=== PATIENT | female | born 1945 | race Caucasian/White ===

== ENCOUNTER → 2019-06-25 08:23 | Outpatient (CLI) | payer OTHER, SELFPAY ==
--- NOTE | ~2019-06-25 | XR_ITS ---
EXAMINATION: XR lumbar spine 2-3V DATE: 06/25/2019 08:44 INDICATION: Low back pain status post lumbar surgery TECHNIQUE: Anteroposterior and lateral views of the lumbar spine, and cone-down lateral view of the l umbosacral junction were obtained. COMPARISON: 04/15/2019 FINDINGS: There are changes of interval posterior fusion from L4 through S1. There are 3 mm of unchan ged anterolisthesis of L4 on L5 and L5 on S1. There is unchanged moderate loss of intervertebral disc space height at L2-3 and L5-S1 mild loss of intervertebral disc space height at L4-5.The vertebral b mercy heights are normal. There is no fracture. Calcified atherosclerosis is noted. IMPRESSION: 1. Moderate lumbar spondylosis with interval posterior fusion from L4 through S1. No acute findings. Reviewed, dictated and finalized at location A. OL SERGEANT IMPRESSION: 1. Moderate lumbar spondylosis with interval posterior fusion from L4 through S 1. No acute findings.
== END ==
PROVIDERS: PCP Family Medicine Adolescent Medicine; Visit Provider Neurological Surgery
DX: Z98.890 Other specified postprocedural states (principal); M47.896 Other spondylosis, lumbar region; Z98.1 Arthrodesis status
CPT/HCPCS: 72100

== ENCOUNTER 2019-07-23 10:01 | Outpatient (CLI) | payer OTHER, SELFPAY ==
--- NOTE | ~2019-07-23 | XR_ITS ---
EXAMINATION: XR lumbar spine 2-3V DATE: 07/23/2019 10:15 INDICATION: Lumbar spine surgery TECHNIQUE: Anteroposterior and lateral views of the lumbar spine, and cone-down lateral view of the l umbosacral junction were obtained. COMPARISON: 06/25/2019 FINDINGS: Again seen are changes of posterior fusion and laminectomy from L4 through S1. There are 3 mm of anterolisthesis of L4 on L5 and L5 on S1. There is mild loss of intervertebral disc space heigh t at L4-5 and moderate loss of intervertebral disc space height at L2-3 and L5-S1. The vertebral body heights are normal. There is no fracture. IMPRESSION: 1. Moderate lumbar spondylosis with posterior fusion and laminectomy from L5 through S1 without acute findings. Reviewed, dictated and finalized at location A. GER HOME IMPRESSION: 1. Moderate lumbar spondylosis with posterior fusion and laminectomy from L5 th rough S1 without acute findings.
== END 2019-07-23 10:02 | disposition home or self-care (01) ==
LOC: ANHIMG 10:06
PROVIDERS: PCP Family Medicine Adolescent Medicine; Visit Provider Neurological Surgery
DX: Z09 Encounter for follow-up examination after completed treatment for conditions other than malignant neoplasm (principal); M47.896 Other spondylosis, lumbar region
CPT/HCPCS: 72100

== ENCOUNTER 2020-05-24 17:23 | Emergency (ER) | payer OTHER, SELFPAY ==
[2020-05-24 17:36] VITALS: BP 127/60; PULSE 85; RESP 16; TEMP 36.8; O2SAT 100
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
== END 2020-05-24 18:02 | disposition home or self-care (01) ==
PROVIDERS: Emergency Provider Nurse Practitioner; PCP Family Medicine Adolescent Medicine
DX: S20.212A Contusion of left front wall of thorax, initial encounter (principal); V49.40XA Driver injured in collision with unspecified motor vehicles in traffic accident, initial encounter
CPT/HCPCS: 99212; G0463

== ENCOUNTER 2020-06-04 06:54 | Outpatient (NON) | payer OTHER, SELFPAY ==
[2020-06-04 19:24] LABS: SARS-CoV-2 RNA PCR Positive
== END 2020-06-04 06:55 ==
LOC: ANHCOVIDDT 07:15
PROVIDERS: PCP Family Medicine Adolescent Medicine; Visit Provider Family Medicine Adolescent Medicine
DX: U07.1 COVID-19 (principal)
CPT/HCPCS: C9803; U0003

== ENCOUNTER → 2020-10-22 12:31 | Outpatient (CLI) | payer OTHER, SELFPAY ==
--- NOTE | ~2020-10-22 | MM_ITS ---
EXAMINATION: MM screening kasandra BI w fito HISTORY: Screening mammogram TECHNIQUE: Craniocaudal and mediolateral oblique 3-D tomosynthesis images were obtained and synthetic 2-D images were generated. CAD analysis was submitted and interpreted. COMPARISON: No prior mammogram is available for comparison at this institution. BREAST PARENCHYMAL COMPOSITION: The breasts are almost entirely fatty. FINDINGS: There is no evidence of suspicious mass, calcification, or architectural distortion to sugg est malignancy in either breast. There has been no suspicious interval change. IMPRESSION: 1. No mammographic evidence of malignancy. 2. Recommend routine screening mammography in one year. BI-RADS Category 1: Negative Reviewed, dictated and finalized at location A.
== END ==
PROVIDERS: PCP Family Medicine Adolescent Medicine; Visit Provider Family Medicine Adolescent Medicine
DX: Z12.31 Encounter for screening mammogram for malignant neoplasm of breast (principal)
CPT/HCPCS: 77063; 77067

== ENCOUNTER → 2022-08-08 08:06 | Outpatient (CLI) | payer OTHER, SELFPAY ==
--- NOTE | ~2022-08-08 | MR_ITS ---
EXAMINATION: MR lumbar spine wo/w con DATE: 08/08/2022 08:55 INDICATION: Lumbar spondylosis without myelopathy or radiculopathy TECHNIQUE: Magnetic resonance imaging (MRI) of the lumbar spine was performed without and with 15 mL Multihance intravenous contrast. Sequences included sagittal T2-weighted FSE, sagittal T2-weighted FS FSE, and sagittal and axial T1-weighted FSE. Postcontrast sequences included axial T2-weighted FSE, sagittal T1-weighted FSE, and axial and sagittal T1-weighted FS FSE. COMPARISON: Lumbar spine radiographs dated 07/23/2019 and MRI dated 12/13/2018 FINDINGS: 1-2 mm retrolisthesis L1 on L2, 3 mm retrolisthesis L2 on L3, 4 mm retrolisthesis L3 on L4, 3 mm ante rolisthesis L4 on L5 and 5 mm anterolisthesis L5 on S1. Interval L4 and L5 laminectomies with L4-S1 p osterior spinal fusion with bilateral vertical jessica and pedicle screw fixation. Stable appearance of c hronic anterior wedging, mild at T11, minimal at T11 and L1. Schmorl's nodes at multiple levels. Mode rate disc height loss at T11-T12, L2-L3 and L4-L5, severe disc height loss at T10-T11 and L5-S1. Mild disc height loss at T12-L1, L1-L2 and L3-L4. Bone marrow signal is normal. The conus medullaris term inates at L2. There is normal signal in the caudal spinal cord. Paravertebral soft tissues are unrema rkable. No abnormally enhancing lesions identified. The following disc levels are specifically discus sed: T12-L1: Minimal central disc protrusion. There is mild bilateral facet joint osteoarthritis. There is no neural foraminal stenosis. There is no central canal stenosis. L1-L2: Disc is mildly bulging. There is mild left and moderate right facet joint osteoarthritis. Ther e is no neural foraminal stenosis. There is no central canal stenosis. L2-L3: Disc is bulging with annular fissure. There is moderate bilateral facet joint osteoarthritis. There is moderate bilateral neural foraminal stenosis. There is mild central canal stenosis. L3-L4: Evaluation somewhat limited by metallic magnetic field artifact from the posterior spinal fusi on instrumentation at L4. There is a new annular fissure and left paracentral disc extrusion with dis c material extending up to 12 mm caudal to the level of the superior endplate of L4. There is hypertr ophy of the ligamentum flavum. There is moderate to severe bilateral facet joint osteoarthritis. Ther e is moderate bilateral neural foraminal stenosis. There is severe central canal stenosis. L4-L5: The previously bulging and extruded disc material is no longer visualized and was likely resec edith the time of the posterior spinal fusion. There is mild to moderate bilateral neural foraminal jeremias nosis. L4 and L5 laminectomies and posterior decompression with no central canal stenosis. L5-S1: Disc is bulging with annular fissure. Instrumented posterior spinal fusion. There is mild left and mild to moderate right neural foraminal stenosis. L5 laminectomy with posterior decompression an d no central canal stenosis. IMPRESSION: 1. Severe lumbar spondylosis with interval L4 and L5 laminectomies, likely resection of the L4-L5 dis c extrusion and instrumented L4-S1 posterior spinal fusion. 2. New 4 mm retrolisthesis L3-L4 with corresponding new mild disc height loss and annular fissure wit h disc extrusion contributing to severe central canal stenosis at this level. Reviewed, dictated and finalized at location B. IMPRESSION: 1. Severe lumbar spondylosis with interval L4 and L5 laminectomies, likely rese ction of the L4-L5 disc extrusion and instrumented L4-S1 posterior spinal fusio n. 2. New 4 mm retrolisthesis L3-L4 with corresponding new mild disc height loss a nd annular fissure with disc extrusion contributing to severe central canal jeremias nosis at this level.
== END ==
PROVIDERS: PCP Family Medicine Adolescent Medicine; Visit Provider Nurse Practitioner Adult Health
DX: M47.816 Spondylosis without myelopathy or radiculopathy, lumbar region (principal)
CPT/HCPCS: 72158; A9577

== ENCOUNTER 2022-09-15 08:59 | Outpatient (CLI) | payer OTHER, SELFPAY ==
--- NOTE | ~2022-09-15 | XR_ITS ---
Lumbosacral Spine: AP and lateral views, with neutral, flexion, and extension positioning. Clinical History: Spondylosis COMPARISON: 07/23/2019 Findings: Posterior fusion from L4 through S1 is again present. Orthopedic hardware is unchanged. Sta ble grade 1 anterolisthesis of L4 over L5, and of L5 over S1. There is advanced degenerative disc lyric rowing at L2-L3. There is new grade 1 retrolisthesis of L2 over L3. No definite instability seen on f lexion or extension. The sacroiliac joints are normally outlined. Impression: Posterior fusion from L4 through S1 appears unchanged. Stable grade 1 anterolisthesis of L4-L5, and of L5 over S1. Grade 1 retrolisthesis of L2 over L3, which appears new/slightly more pronounced as compared to prior exam. Reviewed, dictated and finalized at location . Impression: Posterior fusion from L4 through S1 appears unchanged. Stable grade 1 anterolisthesis of L4-L5, and of L5 over S1. Grade 1 retrolisthesis of L2 over L3, which appears new/slightly more pronounce d as compared to prior exam.
== END 2022-09-15 09:00 | disposition home or self-care (01) ==
PROVIDERS: PCP Family Medicine Adolescent Medicine; Visit Provider Nurse Practitioner Adult Health
DX: M47.816 Spondylosis without myelopathy or radiculopathy, lumbar region (principal); Z98.1 Arthrodesis status
CPT/HCPCS: 72110

== ENCOUNTER → 2022-10-20 09:20 | Outpatient (CLI) | payer OTHER, SELFPAY ==
--- NOTE | ~2022-10-20 | CT_ITS ---
EXAMINATION: CT lumbar spine wo con DATE: 10/20/2022 09:37 INDICATION: Back pain. Spinal stenosis. TECHNIQUE: Computed tomography (CT) of the lumbar spine was performed without intravenous contrast. A utomated exposure control and iterative reconstruction technique were employed. The dose-length produ ct was 824.11 mGy-cm. COMPARISON: Lumbar spine MRI 08/08/2022 FINDINGS: There are calcified fibroids in the uterus. There is 8 degrees levocurvature of lumbar spin e. There is 3 mm retrolisthesis of L2 on L3 and 3 mm anterolisthesis of L4 on L5 and L5 on S1. There is mild chronic anterior wedging of T12 and L1 vertebral bodies. There are changes of posterior fusio n procedure from L4 to S1 with pedicle screws. There is severely decreased disc height at L2-L3, mild ly decreased disc height at L3-L4, moderately decreased disc height at L4-L5, and severely decreased disc height at L5-S1. The following disc levels are specifically discussed: L1-L2: The disc is bulging. There is mild bilateral facet joint osteoarthritis. There is no neural fo raminal stenosis. There is mild central canal stenosis. L2-L3: The disc is bulging. There is moderate bilateral facet joint osteoarthritis. There is moderate bilateral neural foraminal stenosis. There is mild central canal stenosis. L3-L4: The disc is bulging. There is severe bilateral facet joint osteoarthritis. There is hypertroph y of the ligamentum flavum. There is moderate bilateral neural foraminal stenosis. There is severe ce ntral canal stenosis. L4-L5: The disc does not extend beyond the endplate margin. There is mild bilateral facet joint hyper trophy. There is mild bilateral neural foraminal stenosis. There is no central canal stenosis. There is posterior decompression. L5-S1: The disc is bulging. There is moderate bilateral facet joint hypertrophy. There is mild bilate ral neural foraminal stenosis. There is mild central canal stenosis. IMPRESSION: 1. Severe lumbar spondylosis, stable from 08/08/2022. Reviewed, dictated and finalized at location E.
== END ==
PROVIDERS: PCP Family Medicine Adolescent Medicine; Visit Provider Neurological Surgery
DX: M47.816 Spondylosis without myelopathy or radiculopathy, lumbar region (principal); Z98.1 Arthrodesis status
CPT/HCPCS: 72131

== ENCOUNTER 2024-12-09 09:09 | Emergency (ER) | payer OTHER, SELFPAY ==
[2024-12-09 09:22] VITALS: BP 120/76; PULSE 66; RESP 18; TEMP 36.8; O2SAT 98
--- NOTE | 2024-12-09 09:24 | ED.LOWEXIN ---
HPI - Extremity Injury (Lower) General Stated Complaint: Right Knee Pain Time Seen by Provider: 12/09/24 09:25 Source: patient Mode of arrival: ambulatory Limitations: no limitations History of Present Illness HPI Narrative: 79-year-old female presented for complaint of right knee pain and lower leg swelling. Onset 3 days. Pt also reports leg cramping but says this is not new. Denies injury. States pain started while walking during work. Patient denies changes in temp or color to the leg, denies chest pain, palpitations, dizziness, nausea, vomiting or lethargy. Rates pain 7/10 when walking, but says pain improves in the knee after she is up walking for a while. Related Data Home Medications ?Medication ?Instructions ?Recorded ?Confirmed ?Last Taken ?Type multivitamin 1 tablet PO DAILY 01/20/22 11/23/23 Unknown History turmeric 400 mg capsule mg PO 12/08/22 11/23/23 Unknown History vitamin B12 0.5 mg-folic acid 1 mg 1 tablet PO DAILY 12/08/22 11/23/23 Unknown History tablet Allergies Allergy/AdvReac Type Severity Reaction Status Date / Time No Known Allergies Allergy Verified 12/09/24 09:36 Review of Systems Review of Systems: CONSTITUTIONAL: Denies body aches, fever, chills EYES: Denies visual changes ENT: Denies rhinorrhea, congestion CARDIOVASCULAR: Denies chest pain, palpitations, or edema. RESPIRATORY: Denies cough or dyspnea. SKIN: Denies rash, itching, or wounds. MUSCULOSKELETAL: reports RLE swelling and knee pain NEUROLOGIC: Denies numbness, tingling, or weakness. All systems reviewed & are unremarkable except as noted in HPI and below PMFSH Past Medical History Medical History History of meniscal tear (~12/2017) Lumbar spondylosis Surgical History Surgical History History of lumbar surgery (05/2019) fusion History of vein stripping (1997) Right leg Hx of left knee surgery (2017) Torn meniscus Family History Family History Mother Diabetes mellitus Father COPD (chronic obstructive pulmonary disease) Other Family history of arthritis Social History Social History Smoking status: Former smoker Tobacco type: cigarettes Second hand tobacco smoke exposure: No Smoking end date: 09/27/72 Alcohol intake: current Alcohol use details: occasionally Substance use: never Substance use type: does not use Living arrangements: with family Occupation/Education: occupation Gender identity (if verbalized by the patient): Female Spiritual care concerns: No Agree to blood products: Yes Comments At time of signature, I have reviewed and agree with nursing past medical, surgical, social and family history unless otherwise noted. Please see nursing chart for further information. There is no relevant family history pertinent to the presenting complaint Exam Narrative: GENERAL: Well-appearing, and in no acute distress. CHEST: Speaks in full sentences. No respiratory distress. HEART: Regular rate and rhythm. Normal and equal peripheral pulses. EXTREMITIES: Right calf swelling 3cm greater than left calf. Swelling extends to ankle/foot 2+ pitting. No erythema, no tenderness to the calf with palpation. Positive florencia's; endorses 'tightness' to calf. No erythema to the calf or LE. Varicose veins noted. Pt reports tenderness with palpation to the lower anterior/medial aspect of the right knee. No bruising, erythema or warmth. Patient is able to tolerate full flexion, extension, internal and external rotation. No tenderness to palpation of the patella, no effusion or ballottement. No tenderness over the infrapatellar tendon, proximal fibular head, or quadriceps tenderness. Distal motor and neurovascular status intact. Capillary refill less than 3 seconds. Walking with cane. SKIN: Warm, dry, no rash. NEURO: Alert and oriented x3. PSYCH: Normal mood and affect Course Course Emergency Course: Patient is aware of diagnosis, understands and agrees to treatment plan. Anticipatory guidance given. Patient agrees to follow-up as directed and is aware of reasons to seek care at the emergency department. Portions of this record may have been created with voice recognition software Level of Care: Express Care Visit Vital Signs Vital signs: Vital Signs Temperature 98.3 F 12/09/24 09:22 Pulse Rate 66 12/09/24 09:22 Respiratory Rate 18 12/09/24 09:22 Blood Pressure 120/76 12/09/24 09:22 Pulse Oximetry 98 07/14/25 09:22 Oxygen Delivery Room Air 12/09/24 09:22 Temperature 98.3 F 12/09/24 09:22 Pulse Rate 66 12/09/24 09:22 Respiratory Rate 18 12/09/24 09:22 Blood Pressure 120/76 12/09/24 09:22 Pulse Oximetry 98 12/09/24 09:22 Oxygen Delivery Room Air 12/09/24 09:22 Reviewed Transfer Transfered to: [facility] Transportation: Other ( Private vehicle) Transfer rationale: Pt is agreeable to transfer. Requests transfer to [facility] via private vehicle. Risks of transportation reviewed with pt including injury, worsening of condition and . v/u. Report called to hospital, spoke with Dr Cardoza, accepting physician. Pt is in stable condition at time of transfer. Advised to remain NPO and go directly to the hospital. MDM - Extremity Injury (Lower) MDM Narrative Medical decision making narrative: Pt presented with right knee pain and right lower extremity swelling x3 days. Well's criteria, pt is risk for DVT. Recommend ER transfer. Pt understands they may also evaluate the knee pain seperately. We discussed possible etiologies including DVT and pt is agreeable for evaluation to rule out. Differential Diagnosis Differential diagnosis: Likely other (DVT, CHF, PVD, venous insufficiency, medication related, renal failure, gravitational edema, cellulitis, osteoarthritis, patella dislocation, patellar tendonitis, tendon rupture, gout, bakers cyst, septic bursitis, tibial plateau fracture) Discharge Plan Discharge Clinical Impression: Right leg swelling Patient Disposition: Acute Care Hospital Condition: Stable Patient Language: Georgian Prescriptions: No Action risedronate 150 mg tablet 150 mg PO MONTHLY Rx Instructions: administer at least 30 minutes before the first food or drink of the day other than water. multivitamin Tablet 1 tablet PO DAILY turmeric 400 mg capsule PO vitamin U23-beccj acid 0.5-1 mg tablet 1 tablet PO DAILY naproxen 500 mg tablet 500 mg PO BID Qty: 60 5RF cholecalciferol (vitamin D3) 50 mcg (2,000 unit) capsule 50 mcg PO DAILY Qty: 90 3RF atorvastatin 10 mg tablet 10 mg PO DAILY Qty: 90 2RF doxycycline hyclate 100 mg capsule 100 mg PO BID Qty: 20 0RF benzonatate 200 mg capsule 200 mg PO TID PRN (Reason: cough) Qty: 20 1RF Follow-up/Referrals: Arthur Andino MD [Primary Care Provider] - Time of Disposition: 09:43
== END 2024-12-09 09:45 | disposition short-term general hospital (02) ==
PROVIDERS: Emergency Provider Nurse Practitioner Family; PCP Family Medicine Adolescent Medicine
DX: R22.41 Localized swelling, mass and lump, right lower limb (principal); Z87.891 Personal history of nicotine dependence
CPT/HCPCS: 99212; G0463

== ENCOUNTER 2024-12-09 10:05 | Emergency (ER) | payer OTHER, SELFPAY ==
--- NOTE | ~2024-12-09 | US_ITS ---
RIGHT LOWER EXTREMITY VENOUS ULTRASOUND Ordering provider: Nkechi Tomlinson MD History: . R/O DVT . Comparison: None. FINDINGS: --COMMON FEMORAL: Patent and free of thrombus. Normal compressibility, phasic flow and augmentation. --PROXIMAL SUPERFICIAL FEMORAL: Patent and free of thrombus. Normal compressibility, phasic flow and augmentation. --DISTAL SUPERFICIAL FEMORAL: Patent and free of thrombus. Normal compressibility, phasic flow and au gmentation. --POPLITEAL: Patent and free of thrombus. Normal compressibility, phasic flow and augmentation. --POSTERIOR TIBIAL: Patent and free of thrombus. Normal compressibility, phasic flow and augmentation . Thrombosis in the lesser saphenous vein. Complex hypoechoic area which measures 4.9 x 1.8 x 3.4 cm is seen in the knee area suggestive of Bake r's cyst. Follow-up advised. IMPRESSION: Thrombosis in the lesser saphenous vein. No deep vein thrombosis. 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 Follow-up advised. Reviewed, dictated and finalized at location A. IMPRESSION: Thrombosis in the lesser saphenous vein. No deep vein thrombosis. 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 Foll ow-up advised.
--- NOTE | ~2024-12-09 | XR_ITS ---
XR knee RT 3V Ordering provider: Nkechi Tomlinson MD History: . R knee pain/swelling; atraumatic, x2d . Comparison: None. FINDINGS: BONES: No acute fracture or dislocation. JOINT SPACES: Normal. SOFT TISSUES: Normal. IMPRESSION: No acute osseous abnormality right knee. Reviewed, dictated and finalized at location A.
--- OUTSIDE RECORDS SUMMARY | 2024-12-09 10:09 | XMS_ITS | Clinical Summary ---
Author Organization [facility] Address [address] [place] [address] Care Team Providers Care Pillow Agent Name Role Phone Unavailable Primary Care Provider Unavailabl e Social History Tobacco Use Types Packs/Day Years Used Date Smoking Tobacco: Never Assessed Comments Unknown Sex and Gender Information Value Date Recorded Sex Assigned at Not on file Legal Sex Female 7:16 PM CDT Gender Identity Not on file Sexual Orientation Not on file Plan of Treatment Health Maintenance Due Date Last Done Comments Hepatitis C 1963 DTaP, Tdap and Td Vaccines ( 1 - Tdap) 1965 Pneumococcal Vaccine: 50+ Ye ars (1 of 1 - PCV) 1996 Zoster Vaccines (1 of 2) 1996 Dexa Scan (General) 11/10/2011 RSV Immunization or 60+ Years (1 - 1-dose 75+ series) 2021 COVID-19 Vaccine (2023-2 5 season) 2024 Meningococcal B Vaccine Aged Out No l onger eligible based on patient's age to complete this topic Meningococcal Vaccine Aged Out No coleman addie eligible based on patient's age to complete this topic RSV Immunizations Under 20 Months Aged Out No longer eligible based on patient's age to complete this topic
--- OUTSIDE RECORDS SUMMARY | 2024-12-09 10:09 | XMS_ITS | Clinical Summary ---
Author Organization [employer] [address] [facility] Address [address] [place] [address] Care Team Providers Care Lottery Sales Clerk Name Role Phone Arthur Andino MD Primary Care Provider [phone]- [phone] Allergies No known active allergies Medications alendronate (FOSAMAX) 70 mg tablet Take 70 mg by mouth every 7 days Sundays. 3 9 Active acetaminophen (TYLENOL) 500 mg tablet Take 500 mg by mouth every 6 hours as needed. Active sennosides-docus ate sodium (SENNA-S) 8.6-50 mg tablet Take one tablet by mouth twice daily while on narcotic analgesia, then take one tablet twice daily as needed for constipation. 30 Tablet 1 06/16/2019 2:12 PM CLINICAL SALES CONSULTANT 0 Active cyclobenzaprine (FLEXERIL) 10 mg tablet Take 0.5-1 Tablets (5-10 mg) by mouth at bedtime as needed to prevent muscle spasm 15 Tablet 06/16/2019 2:12 PM CLINICAL SALES CONSULTANT 0 Active oxyCODONE (ROXICODONE) 5 mg tabletIndication s:Neurogenic claudication due to lumbar spinal stenosis Take 1 Tablet (5 mg) by mouth every 6 hours as needed (for breakthrough pain refractory to Tylenol.). Max Daily Amount: 20 mg 12 Tablet 06/16/2019 2:12 PM CLINICAL SALES CONSULTANT 0 Active gabapentin (Neurontin) 300 mg capsule Take 1 Capsule (300 mg) by mouth 3 times daily. 60 Capsule 02/25/202 0 Active Active Problems Problem Noted Date Diagnosed Date Acute blood loss anemia 06/14/2019 Spondylolisthesis at L4-L5 level 05/27/2019 Status post lumbar spine arabella shaun for decompression of spinal cord 05/27/2019 Postoperative follow-up 02/19/2019 Neurogenic claudication due to lumbar spinal jeremias nosis 01/07/2019 Neuritis or radiculitis due to rupture of lumbar intervertebral disc 01/07/2019 Family History Medical History Relation Name Comments No Known Problems Brother No Known Problems Father Dementia Mother No Known Problems Sister Relation Name Status Comments Brother Alive Father Mother Sister Alive Social History Tobacco Use Types Packs/Day Years Used Date Smoking Tobacco: Former Cigarettes 1 20 1 [id number] Smokeless Tobacco: Never Alcohol Use Standard Drinks/Week Comments Yes 0 (1 standard drink = 0.6 oz pur e alcohol) moderate Comments No Sex and Gender Information Value Date Recorded Sex Assigned at Not on file Legal Sex Female 9:42 AM CDT Gender Identity Not on file Sexual Orientation Not on file 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 Not on file Not on file Not on file Last Filed Vital Signs Vital Sign Reading Time Taken Comments Blood Pressure 133/61 06/16/2019 2:07 PM CLINICAL SALES CONSULTANT Pulse 97 06/16/2019 2:07 PM CLINICAL SALES CONSULTANT Temperature 36.8 C (98.2 F) 06/16/2019 2:07 PM CLINICAL SALES CONSULTANT Respiratory Rate 16 06/16/2019 2:07 PM CLINICAL SALES CONSULTANT Oxygen Saturation 99% 06/16/2019 2:07 PM CLINICAL SALES CONSULTANT Inhaled Oxygen Concentration - - Weight 79.4 kg (175 lb) 06/12/2019 10:40 AM CLINICAL SALES CONSULTANT Height 158.8 cm (5' 2.5) 06/12/2019 10:40 AM CS T Body Mass Index 31.5 06/12/2019 10:40 AM CLINICAL SALES CONSULTANT Plan of Treatment Health Maintenance Due Date Last Done Comments DTAP/TDAP/TD VACCINES (1 - Tdap) 1965 PNEUMOCOCCAL VACCINE 50+ YEARS (1 of 1 - PCV) 11/09/18 97 ZOSTER VACCINE (1 of 2) 1996 OSTEOPOROSIS SCREENING 11/10/2011 RSV VACCINE (60+ or ) (1 - 1-dose 75+ series) 2021 INFLUENZA VACCINE (#1) 2024 Medical Devices Implanted Type Area [employer] Chemistry Teacher Device Identifier Shelf Expiration Date Model / Serial / Lot Sealant Duraseal 5ml - [id number] Implanted:Qty: 1 on 06/12/2019 by Lamonte Canales MD at [facility] Biological N/A: Spine Lumbar [employer]RA LIFES[employer] LYN 03/28/2020 / / [id number] Hemostatic Surgiflo 8ml W/Thrombin 2994 - Sna Implanted:Qty: 1 on 06/12/2019 by Lamonte Canales MD at [facility] Hemostatic N/A: Spine Lumbar J[employer]J- [employer] 04/27/2020 2994 / NA / [id number] Reginaldo Solera Ccm Crv [id number] - [id number] Implanted:Qty: 2 on 06/12/2019 by Lamonte Canales MD at [facility] Reginaldo N/A: Spine Lumbar MED[employer]ON[employer]- SOFAMOR DANEK [id number] / / NA Description:load 200 87716 sterilization date [id number] REQ#[id number] Screw Solera Breakoff [id number] - [id number] Implanted:Qty: 6 on 06/12/2019 by Lamonte Canales MD at [facility] Screw N/A: Spine Lumbar [employer]- SOFAMOR DANEK [id number] / / NA Description:load 200 85988 sterilization date [id number] Screw Solera Ma 6.5x45mm [id number] - [id number] Implanted:Qty: 1 on 06/12/2019 by Lamonte Canales MD at [facility] Screw N/A: Spine Lumbar [employer]- SOFAMOR DANEK [id number] / / NA Description:load 200 33409 sterilization date [id number] Screw Solera Ma 6.5x40mm [id number] - [id number] Implanted:Qty: 1 on 06/12/2019 by Lamonte Canales MD at [facility] Screw N/A: Spine Lumbar [employer]- SOFAMOR DANEK [id number] / / NA Description:load 200 80056 sterilization date [id number] Screw Solera Ma 7.5x35mm [id number] - [id number] Implanted:Qty: 2 on 06/12/2019 by Lamonte Canales MD at [facility] Screw N/A: Spine Lumbar [employer]- SOFAMOR DANEK [id number] / / NA Description:load 200 11189 sterilization date [id number] Screw Solera Ma 7.5x40mm [id number] - [id number] Implanted:Qty: 1 on 06/12/2019 by Lamonte Canales MD at [facility] Screw N/A: Spine Lumbar [employer]- SOFAMOR DANEK [id number] / / NA Description:load 200 61517 sterilization date [id number] Screw Solera Ma 7.5x45mm [id number] - [id number] Implanted:Qty: 1 on 06/12/2019 by Lamonte Canales MD at [facility] Screw N/A: Spine Lumbar [employer]- SOFAMOR DANEK [id number] / / NA Description:load 200 23952 [id number] sterilization Infuse Protein Kit [id number] - [id number] Implanted:Qty: 1 on 06/12/2019 by Lamonte Canales MD at [facility] Tissue N/A: Spine Lumbar MED[employer]- SOFAMOR DANEK 06/28/2021 [id number] / [id number] / [id number] Allograft Magnifuse Sc [id number] - [id number] Implanted:Qty: 1 on 06/12/2019 by Lamonte Canales MD at [facility] Tissue N/A: Spine Lumbar [employer] 02/26/2021 [id number] / [id number] / Description:CHECKED BOX RN [id number] REQ [id number] Explanted Type Area [employer] Chemistry Teacher Device Identifier Shelf Expiration Date Model / Serial / Lot Hemostatic Surgiflo 8ml W/Thrombin 2994 - Sna Explanted:Qty: 1 on 01/24/2019 by Lamonte Canales MD at [facility] Hemostatic N/A: Spine Lumbar J[employer]J- [employer] 01/27/2020 2994 / NA / [id number] Insurance Member Subscriber Plan / Payer (Ef fective 2015-Present) Name:Suzie Trujillo Relation to Subscriber:Self Name:Suzie Trujillo Payer ID:Not on file Group ID:[id number] Type:RX Medicare Part D Address: [address] [place] [id number] Advance Directives For more information, please contact: [phone] * Full Code (Latest Code Status on File) Date Activated Date Inactivated Comments 06/12/2019 10:43 PM 06/16/2019 4:56 PM * Full Code Date Activated Date Inactivated Comments 06/12/2019 12:05 PM 06/12/2019 10:43 PM * Full Code Date Activated Date Inactivated Comments 01/24/2019 4:17 PM 01/24/2019 8:05 PM Care Teams Lottery Sales Clerk Relationship Specialty Start Date End Date Arthur Andino MD PCP - General Family Practice 12/20/18
[2024-12-09 10:12] VITALS: BP 144/62; PULSE 69; RESP 17; TEMP 36.4; O2SAT 100
--- NOTE | 2024-12-09 10:13 | ED_ITS ---
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 Related Data Home Medications ?Medication ?Instructions ?Recorded ?Confirmed ?Last Taken ?Type multivitamin 1 tablet PO DAILY 01/20/22 11/23/23 Unknown History turmeric 400 mg capsule mg PO 12/08/22 11/23/23 Unknown History vitamin B12 0.5 mg-folic acid 1 mg 1 tablet PO DAILY 12/08/22 11/23/23 Unknown History tablet Allergies Allergy/AdvReac Type Severity Reaction Status Date / Time No Known Allergies Allergy Verified 12/09/24 10:11 Review of Systems Review of Systems: All systems reviewed & are unremarkable except as noted in HPI and below PMFSH Past Medical History Medical History History of meniscal tear (~12/2017) Lumbar spondylosis Surgical History Surgical History History of lumbar surgery (05/2019) fusion History of vein stripping (1997) Right leg Hx of left knee surgery (2017) Torn meniscus Family History Family History Mother Diabetes mellitus Father COPD (chronic obstructive pulmonary disease) Other Family history of arthritis Social History Social History Smoking status: Former smoker Tobacco type: cigarettes Second hand tobacco smoke exposure: No Smoking end date: 09/27/72 Alcohol intake: current Alcohol use details: occasionally Substance use: never Substance use type: does not use Living arrangements: with family Occupation/Education: occupation Gender identity (if verbalized by the patient): Female Spiritual care concerns: No Agree to blood products: Yes Exam Narrative: EXAMINATION OF ORGAN SYSTEMS/BODY AREAS: Constitutional: Vital signs per nursing GENERAL:[No acute distress, non-toxic appearing.] HEAD: Normal with no signs of head trauma. EYES: EOMI, conjunctiva normal ENT: Hearing grossly intact LUNGS: Nonlabored breathing. HEART: [Regular rate and rhythm] ABD: [Soft], [nontender to palpation] EXT: Normal range of motion; swelling right lower leg compared to left SKIN: [No rashes or lesions.] NEURO: [Alert and oriented x 3. No gross focal sensory or strength deficits.] Able to ambulate. PSYCH: Normal affect Course Vital Signs Vital signs: Vital Signs Temperature 97.5 F L 12/09/24 10:12 Pulse Rate 69 12/09/24 10:12 Respiratory Rate 17 12/09/24 10:12 Blood Pressure 144/62 H 12/09/24 10:12 Pulse Oximetry 100 12/09/24 10:12 Oxygen Delivery Room Air 12/09/24 10:12 Temperature 97.5 F L 12/09/24 10:12 Pulse Rate 65 12/09/24 12:04 Respiratory Rate 18 12/09/24 12:04 Blood Pressure 143/57 H 12/09/24 12:04 Pulse Oximetry 100 12/09/24 12:04 Oxygen Delivery Room Air 12/09/24 10:12 MDM - Extremity (Nontraumatic) MDM Narrative Medical decision making narrative: Patient presents here with atraumatic right knee/leg pain and swelling, on exam she is quite well-appearing, she has no prior history of blood clots, she is able to ambulate and has normal range of motion, no obvious skin findings, I have low concern for infectious cause given her painless range of motion, will rule out DVT here as well as obtain knee x-ray. Knee x-ray unremarkable. DVT ultrasound shows no DVT, there is thrombosis in the small saphenous pain however I did call radiologist, unable to asked certain how extensive the thrombosis is, in shared decision making with the patient, given the extent of her symptoms and risk factors, will opt to start her on prophylactic anticoagulation at this time with xarelto, coupon given, with strict return precautions and follow-up instructions to her primary care doctor, she will likely require repeat ultrasound to ensure no propagation of clot, and she knows to return if she has any chest pain or shortness of breath or signs of PE. Advised to avoid NSAIDs and that she needs to return if she falls and hits her head. Symptomatic management including elevation, compression, compresses, counseled. Discharge Plan Discharge Clinical Impression: Thrombophlebitis Patient Disposition: Home Condition: Stable Instructions: Superficial Thrombophlebitis (ED) Additional Instructions: Please start the blood thinners as prescribed; keep your leg elevated, try compression stockings, you can try warm or cold compresses. Please call your doctor as soon as possible for close followup; you will likely need a repeat ultrasound to see if you need to continue the blood thinners. If you start having any new new or worsening pain or swelling or anything else concerning especially chest pain or shortness of breath, please come back to the hospital. Patient Language: Croatian Prescriptions: New rivaroxaban 10 mg tablet 10 mg PO DAILY Qty: 45 0RF No Action multivitamin Tablet 1 tablet PO DAILY turmeric 400 mg capsule PO vitamin U26-ccwtr acid 0.5-1 mg tablet 1 tablet PO DAILY cholecalciferol (vitamin D3) 50 mcg (2,000 unit) capsule 50 mcg PO DAILY Qty: 90 3RF atorvastatin 10 mg tablet 10 mg PO DAILY Qty: 90 2RF Follow-up/Referrals: Qamar Prescott MD [Physician] - 2 Days Arthur Andino MD [Primary Care Provider] - 2 Days
--- OUTSIDE RECORDS SUMMARY | 2024-12-09 10:31 | XMS_ITS | Clinical Summary ---
Author Organization [employer] [address] [facility] Address [address] [place] [address] Care Team Providers Care Licensed Occupational Therapy Assistant Name Role Phone Arthur Andino MD Primary Care Provider +1- [phone] Allergies No known active allergies Medications alendronate [...] constipation. 30 Tablet 1 06/16/2019 2:12 PM BUSINESS SERVICES ASSOCIATE 0 Active cyclobenzaprine (FLEXERIL) 10 mg tablet Take 0.5-1 Tablets (5-10 mg) by mouth at bedtime as needed to prevent muscle spasm 15 Tablet 06/16/2019 2:12 PM BUSINESS SERVICES ASSOCIATE 0 Active oxyCODONE (ROXICODONE) 5 mg tabletIndication s:Neurogenic claudication due to lumbar spinal stenosis Take 1 Tablet (5 mg) by mouth every 6 hours as needed (for breakthrough pain refractory to Tylenol.). Max Daily Amount: 20 mg 12 Tablet 06/16/2019 2:12 PM BUSINESS SERVICES ASSOCIATE 0 Active gabapentin (Neurontin) 300 mg capsule [...] Comments Blood Pressure 133/61 06/16/2019 2:07 PM BUSINESS SERVICES ASSOCIATE Pulse 97 06/16/2019 2:07 PM BUSINESS SERVICES ASSOCIATE Temperature 36.8 C (98.2 F) 06/16/2019 2:07 PM BUSINESS SERVICES ASSOCIATE Respiratory Rate 16 06/16/2019 2:07 PM BUSINESS SERVICES ASSOCIATE Oxygen Saturation 99% 06/16/2019 2:07 PM BUSINESS SERVICES ASSOCIATE Inhaled Oxygen Concentration - - Weight 79.4 kg (175 lb) 06/12/2019 10:40 AM BUSINESS SERVICES ASSOCIATE Height 158.8 cm (5' 2.5) 06/12/2019 10:40 AM CS T Body Mass Index 31.5 06/12/2019 10:40 AM BUSINESS SERVICES ASSOCIATE Plan of Treatment Health Maintenance Due Date Last Done Comments DTAP/TDAP/TD VACCINES (1 - Tdap) 1965 PNEUMOCOCCAL VACCINE 50+ YEARS (1 of 1 - PCV) 11/09/18 97 ZOSTER VACCINE (1 of 2) 1996 OSTEOPOROSIS SCREENING 11/10/2011 RSV VACCINE (60+ or ) (1 - 1-dose 75+ series) 2021 INFLUENZA VACCINE (#1) 2024 Medical Devices Implanted Type Area Rewriter Device Identifier Shelf Expiration Date Model / Serial / Lot Sealant Duraseal 5ml - [id number] Implanted:Qty: 1 on 06/12/2019 by Lamonte Canales MD at [facility] Biological N/A: Spine Lumbar [employer]YN 03/28/2020 / / [id number] Hemostatic Surgiflo 8ml W/Thrombin 2994 - Sna Implanted:Qty: 1 on 06/12/2019 by Lamonte Canales MD at [facility] Hemostatic N/A: Spine Lumbar J[employer]J- [employer] 04/27/2020 2994 / NA / [id number] Reginaldo Solera Ccm Crv [id number] - [id number] Implanted:Qty: 2 on 06/12/2019 by Lamonte Canales MD at [facility] Reginaldo N/A: Spine Lumbar [employer]- SOFAMOR DANEK [id number] / / NA Description:load 200 38937 sterilization date [id number] REQ#[id number] Screw Solera Breakoff [id number] - [id number] Implanted:Qty: 6 on 06/12/2019 by Lamonte Canales MD at [facility] Screw N/A: Spine Lumbar [employer]- SOFAMOR DANEK [id number] / / NA Description:load 200 96214 sterilization date [id number] Screw Solera Ma 6.5x45mm [id number] - [id number] Implanted:Qty: 1 on 06/12/2019 by Lamonte Canales MD at [facility] Screw N/A: Spine Lumbar [employer]- SOFAMOR [employer]ANEK [id number] / / NA Description:load 200 24575 sterilization date [id number] Screw Solera Ma 6.5x40mm [id number] - [id number] Implanted:Qty: 1 on 06/12/2019 by Lamonte Canales MD at [facility] Screw N/A: Spine Lumbar [employer]- SOFAMOR DANEK [id number] / / NA Description:load 200 81921 sterilization date [id number] Screw Solera Ma 7.5x35mm [id number] - [id number] Implanted:Qty: 2 on 06/12/2019 by Lamonte Canales MD at [facility] Screw N/A: Spine Lumbar [employer] SOFAMOR [employer]ANEK [id number] / / NA Description:load 200 34733 sterilization date [id number] Screw Solera Ma 7.5x40mm [id number] - [id number] Implanted:Qty: 1 on 06/12/2019 by Lamonte Canales MD at [facility] Screw N/A: Spine Lumbar [employer]- SOFAMOR DANEK [id number] / / NA Description:load 200 61969 sterilization date [id number] Screw Solera Ma 7.5x45mm [id number] - [id number] Implanted:Qty: 1 on 06/12/2019 by Lamonte Canales MD at [facility] Screw N/A: Spine Lumbar [employer]- SOFAMOR DANEK [id number] / / NA Description:load 200 71582 [id number] sterilization Infuse Protein Kit [id number] - [id number] Implanted:Qty: 1 on 06/12/2019 by Lamonte Canales MD at [facility] Tissue N/A: Spine Lumbar [employer]- SOFAMOR DANEK 06/28/2021 [id number] / [id number] / [id number] Allograft Magnifuse Sc [id number] - [id number] Implanted:Qty: 1 on 06/12/2019 by Lamonte Canales MD at [facility] Tissue N/A: Spine Lumbar [employer] 02/26/2021 [id number] / [id number] / Description:CHECKED BOX RN [id number] REQ [id number] Explanted Type Area Rewriter Device Identifier Shelf Expiration Date Model / Serial / Lot Hemostatic Surgiflo 8ml W/Thrombin 2994 - Sna Explanted:Qty: 1 on 01/24/2019 by Lamonte Canales MD at [facility] Hemostatic N/A: Spine Lumbar J[employer]J- [employer] 01/27/2020 2994 / NA / [id number] Insurance Member Subscriber Plan / Payer (Ef fective 2015-Present) Name:Suzie Trujillo Relation to Subscriber:Self Name:Suzie Trujillo Payer ID:Not on file Group ID:[id number] Type:RX Medicare Part D Address: [address] [place] [id number] Advance Directives For more information, please contact: [phone] * Full Code (Latest Code Status on File) Date Activated Date Inactivated Comments 06/12/2019 10:43 PM 06/16/2019 4:56 PM * Full Code Date Activated Date Inactivated Comments 06/12/2019 12:05 PM 06/12/2019 10:43 PM * Full Code Date Activated Date Inactivated Comments 01/24/2019 4:17 PM 01/24/2019 8:05 PM Care Teams Licensed Occupational Therapy Assistant Relationship Specialty Start Date End Date Arthur Andino MD PCP - General Family Practice 12/20/18
--- OUTSIDE RECORDS SUMMARY | 2024-12-09 10:31 | XMS_ITS | Clinical Summary ---
Author Organization [facility] Address [address] [place] [address] Care Team Providers Care Sale Professional Digital Marketing Name Role Phone Unavailable Primary Care Provider [...]
[2024-12-09 10:58] VITALS: BP 119/60; PULSE 60; RESP 17; O2SAT 98
[2024-12-09] MEDS: RIVAROXABAN 10 MG TABLET PO (11:56)
[2024-12-09 12:04] VITALS: BP 143/57; PULSE 65; RESP 18; O2SAT 100
== END 2024-12-09 12:09 | disposition home or self-care (01) ==
PROVIDERS: Emergency Provider Emergency Medicine; PCP Family Medicine Adolescent Medicine
DX: I80.01 Phlebitis and thrombophlebitis of superficial vessels of right lower extremity (principal); Z98.1 Arthrodesis status; Z87.891 Personal history of nicotine dependence
CPT/HCPCS: 73562; 93971; 99284; A9270